=== PATIENT | female | born 1935 | race Caucasian/White ===

== ENCOUNTER 2018-05-03 15:59 | Outpatient (CLI) | payer OTHER, MEDICARE ==
[2018-05-03 16:44] LABS: BILIRUBIN,URINE 2+ (NEGATIVE); BLOOD, URINE 3+ (NEGATIVE); CLARITY/URINE CLOUDY (CLEAR); COLOR,URINE YELLOW (YELLOW); GLUCOSE,URINE NEGATIVE (NEGATIVE); KETONES,URINE TRACE (NEGATIVE); LEUKOCYTE ESTERASE ,URINE 1+ (NEGATIVE); NITRITE, URINE POSITIVE (NEGATIVE); PH,URINE 5.5 (5.0-8.0); PROTEIN URINE 2+ (NEGATIVE)
[2018-05-03 16:50] LABS: BACTERIA,URINE MODERATE /HPF (None Seen); WBC,URINE >100 /HPF (0-3)
[2018-05-03 16:52] LABS: BASOPHILS # (AUTO) 0.1 K/uL (0.0-0.2); BASOPHILS % (AUTO) 0.8 % (0.0-2.0); EOSINOPHILS # (AUTO) 0.1 K/uL (0.0-0.4); EOSINOPHILS % (AUTO) 1.3 % (0.0-4.0); HEMATOCRIT 40.6 % (36-48); HEMOGLOBIN 13.4 g/dL (12.0-16.0); LYMPHOCYTES # (AUTO) 1.2 K/uL (1.0-5.5); LYMPHOCYTES % (AUTO) 15.7 % (20.5-51.5); MEAN CORPUSCULAR HEMOGLOBIN 31 pg (27-31); MEAN CORPUSCULAR HGB CONC 33 % (32-36); MEAN CORPUSCULAR VOLUME 93 fL (79.0-98.0); MONOCYTES # (AUTO) 0.6 K/uL (0.0-1.0); MONOCYTES % (AUTO) 8.5 % (1.7-9.3); NEUTROPHILS # (AUTO) 5.4 K/uL (1.8-7.7); NEUTROPHILS % (AUTO) 73.7 % (40.0-70.0); PLATELET COUNT (AUTO) 199 K/uL (130-430); RED BLOOD CELL COUNT(AUTO) 4.36 MIL/uL (4.2-6.2); RED CELL DISTRIBUTION WIDTH 14.2 % (9.0-15.0); WHITE BLOOD COUNT (AUTO) 7.4 K/uL (4.8-10.8)
[2018-05-03 17:01] LABS: ANION GAP 10 (5-15); CALCIUM 9.4 mg/dL (8.4-11.0); CHLORIDE 104 mmol/L (98-107); CREATININE 1.05 mg/dL (0.55-1.30); GLUCOSE 118 mg/dL (70-99); POTASSIUM 4.2 mmol/L (3.5-5.1); SODIUM SERUM 141 mmol/L (136-145); UREA NITROGEN, BLOOD 17 mg/dL (8-21)
[2018-05-03 17:16] LABS: ALANINE AMINOTRANSFERASE 22 U/L (12-78); ASPARTATE AMINOTRANSFERASE 18 U/L (10-37); FREE T4 (FREE THYROXINE) 1.3 ng/dl (0.8-1.5); THYROID STIMULATING HORMONE 2.01 uIu/mL (0.36-3.74); TOTAL BILIRUBIN 0.7 mg/dL (0.0-1.0)
== END 2018-05-03 19:37 | disposition home or self-care (01) ==
LOC: SLB 15:59
PROVIDERS: ATTEND Internal Medicine
DX: E03.9 Hypothyroidism, unspecified (principal); E78.5 Hyperlipidemia, unspecified; I48.0 Paroxysmal atrial fibrillation; I42.8 Other cardiomyopathies; R30.0 Dysuria
CPT/HCPCS: 36415; 80053; 81000-TC; 83880; 84439; 84443-TC; 85025; 87086; 87186-TC

== ENCOUNTER 2022-11-27 11:28 | Inpatient (IN) | payer OTHER, MEDICARE ==
[~2022-11-27] VITALS: Ht 162.6 cm; Wt 117.1 kg
--- NOTE | 2022-11-27 11:29 | NUR ---
Patient triaged and placed in waiting room. VSS and patient appears in no acute distress at this time. Accompanied by self, awaiting available bed, and MD notified of need for MSE.
--- NOTE | 2022-11-27 11:30 | NUR ---
Placed in room 6. Placed on security installation technician, blood pressure machine and pulse oximeter. To gown for exam. Side rails up. Report given to Carmencita.
[2022-11-27 11:55] VITALS: BP_SYST 147
[2022-11-27 12:00] LABS: BASOPHILS # (AUTO) 0.1 K/uL (0.0-0.2); BASOPHILS % (AUTO) 0.6 % (0.0-2.0); EOSINOPHILS # (AUTO) 0.1 K/uL (0.0-0.4); EOSINOPHILS % (AUTO) 0.9 % (0.0-4.0); HEMATOCRIT 38.5 % (36-48); HEMOGLOBIN 12.6 g/dL (12.0-16.0); LYMPHOCYTES # (AUTO) 0.9 K/uL (1.0-5.5); LYMPHOCYTES % (AUTO) 10.5 % (20.5-51.5); MEAN CORPUSCULAR HEMOGLOBIN 31 pg (27-31); MEAN CORPUSCULAR HGB CONC 33 % (32-36); MEAN CORPUSCULAR VOLUME 94 fL (79.0-98.0); MONOCYTES # (AUTO) 0.8 K/uL (0.0-1.0); MONOCYTES % (AUTO) 9.5 % (1.7-9.3); NEUTROPHILS # (AUTO) 6.6 K/uL (1.8-7.7); NEUTROPHILS % (AUTO) 78.5 % (40.0-70.0); PLATELET COUNT (AUTO) 145 K/uL (130-430); RED BLOOD CELL COUNT(AUTO) 4.08 MIL/uL (4.2-6.2); RED CELL DISTRIBUTION WIDTH 14.8 % (9.0-15.0); WHITE BLOOD COUNT (AUTO) 8.5 K/uL (4.8-10.8)
--- NOTE | 2022-11-27 12:03 | NUR ---
PT BIBA FROM HOME WITH REPORT OF CHEST PAIN FROM COUGHING. PT IS AWAKE, A/O X4 AND VERBALLY RESPONSIVE. NO ACUTE DISTRESS NOTED. BREATHING EVEN AND UNLABORED. PT NOTED WITH PERSISTANT COUGH. PT TRANSFERRED FROM AMBULANCE [facility] TO ED ROOM 06 [facility] WITH NO DISTRESS. PT PLACED ON FOREMAN OR SUPERVISOR AND OPERATOR. 20G IV PLACED TO L AC, POSITIVE BLOOD RETURN. NO REDNESS OR SWELLING NOTED. PT TOLERATED IV PLACEMENT WELL. SAFETY MEASURES IN PLACE.
[2022-11-27] MEDS ORDERED: DAPA5TAB PO (12:16)
[2022-11-27] MEDS ORDERED: WARF4TAB72 PO (12:16)
[2022-11-27] MEDS ORDERED: LEVO75TA7 PO (12:16)
[2022-11-27] MEDS ORDERED: BUDE6HFA INH (12:16)
[2022-11-27] MEDS ORDERED: FURO-149 PO (12:16)
[2022-11-27] MEDS ORDERED: SACU1TAB PO (12:16)
[2022-11-27 12:23] LABS: ANION GAP 3 (5-15); CALCIUM 8.7 mg/dL (8.4-11.0); CHLORIDE 100 mmol/L (98-107); CREATININE 0.98 mg/dL (0.55-1.30); GLUCOSE 136 mg/dL (70-99); UREA NITROGEN, BLOOD 15 mg/dL (8-21)
[2022-11-27 12:30] LABS: ALANINE AMINOTRANSFERASE 23 U/L (12-78); ASPARTATE AMINOTRANSFERASE 22 U/L (10-37); TOTAL BILIRUBIN 1.5 mg/dL (0.0-1.0)
[2022-11-27] MEDS ORDERED: FUROSEMIDE 40 MG/4 ML VIAL IVP ONE (13:00)
[2022-11-27 13:05] LABS: INR 2.3 (0.8-1.2); PROTHROMBIN TIME 22.1 SECS (9.5-12.5)
--- NOTE | 2022-11-27 13:32 | NUR ---
Per Dr. Gil request, called Dr. Patrick for admission orders.
--- NOTE | 2022-11-27 13:35 | NUR ---
PT IN POSITION OF COFMORT. NO ACUTE DISTRESS NOTED, BREATHING EVEN AND UNLABORED. SAFETY MEASURES IN PLACE. NO CHANGES AT THIS TIME
[2022-11-27] MEDS ORDERED: dilTIAZem HCL IVP 5 MG/ML VIAL IVP ONE (14:00)
--- NOTE | 2022-11-27 16:13 | NUR ---
Admit bed requested Patient will be admitted to care of . Admitted to TELEMETRY unit. Diagnosis CHF EXACERBATION Inpatient (Yes or No) Observation (Yes or No) Orientation concerns or request close to nursing station (Yes or No) N Covid Status NEG On vent or bipap N Isolation requirements N Needs a sitter From Home (Yes or if No enter name of facility) Y Requires Dialysis (Yes or No) [N Med Rec Completed (Yes of No) Y
--- NOTE | 2022-11-27 16:42 | NUR ---
Pt resting in position of comfort, no acute distress noted. breathing even and unlabored. pt remains in position of comfort, safety measures in place. Pt remains on desk monitor. No changes at this time
--- NOTE | 2022-11-27 18:13 | NUR ---
BEDSIDE REPORT GIVEN TO ULISSES FERRARA. PT TRANSFERRED FROM ED [facility] TO TELE BED WITH NO DISTRESS. BREATHING EVEN AND UNLABORED.
[2022-11-27 18:45] VITALS: BP_SYST 139
--- NOTE | 2022-11-27 19:20 | NUR ---
RECEIVED REPORT ON PATIENT FROM JOSIAS GTZ, ASSUMED CARE AND STARTED ASSESSMENT. PATIENT IS PRESENTLY SOUND ASLEEP, AND DIFFICULT TO AROUSE. HER BREATHING IS EVEN AND UNLABORED AND HER CHEST EXPANSION IS EQUAL BILATERALLY. WILL CONTINUE TO MONITOR AND ASSESS FOR SAFETY AND COMFORT.
[2022-11-27 20:00] VITALS: BP_SYST 129
[2022-11-28] VITALS (7 sets, daily range): BP systolic 113–151
--- NOTE | 2022-11-28 04:01 | NUR ---
Consultation Paged Reason for Consultation: chf Was consult called: Y Person who was notified: Rosa Maria Consulting Physician: Dr. Campos Ordering Physician: Dr. Patrick
--- NOTE | 2022-11-28 05:42 | NUR ---
PATIENT WOULD AWAKEN MOMENTARILY DURING THE NIGHT WITH COUGHING AND ASKING FOR COUGH DROPS. SHE IS PRESENTLY SOUND ASLEEP, RESTING IN NO APPARENT DISTRESS. WILL CONTINUE TO MONITOR AND ASSESS FOR SAFETY AND COMFORT.
--- NOTE | 2022-11-28 07:28 | NUR ---
REPORT WAS GIVEN TO JOSIAS SÁNCHEZ, AND CARE WAS TURNED OVER TO HER.
[2022-11-28 07:46] LABS: BASOPHILS % (AUTO) 0.4 % (0.0-2.0); EOSINOPHILS # (AUTO) 0.1 K/uL (0.0-0.4); EOSINOPHILS % (AUTO) 1.7 % (0.0-4.0); LYMPHOCYTES % (AUTO) 13.9 % (20.5-51.5); MEAN CORPUSCULAR HEMOGLOBIN 32 pg (27-31); MEAN CORPUSCULAR HGB CONC 34 % (32-36); MEAN CORPUSCULAR VOLUME 94 fL (79.0-98.0); MONOCYTES # (AUTO) 0.9 K/uL (0.0-1.0); MONOCYTES % (AUTO) 12.1 % (1.7-9.3); NEUTROPHILS # (AUTO) 5.2 K/uL (1.8-7.7); NEUTROPHILS % (AUTO) 71.9 % (40.0-70.0); PLATELET COUNT (AUTO) 134 K/uL (130-430); RED BLOOD CELL COUNT(AUTO) 3.82 MIL/uL (4.2-6.2); RED CELL DISTRIBUTION WIDTH 15.1 % (9.0-15.0); WHITE BLOOD COUNT (AUTO) 7.3 K/uL (4.8-10.8)
--- NOTE | 2022-11-28 07:47 | NUR ---
OPENING NOTE received pt alert, oriented. states she wants a cough drop for sore, dry throat. ice chips and hot tea provided. cough drop to be requested from MD. skin warm and dry. no distress otherwise. iv appears intact left arm, SL. call light in reach. respirations even, unlabored, no SOB. reminded to replace nc in nares.
[2022-11-28 08:24] LABS: ALANINE AMINOTRANSFERASE 19 U/L (12-78); ALBUMIN 2.6 g/dL (3.4-4.8); ANION GAP 3 (5-15); ASPARTATE AMINOTRANSFERASE 10 U/L (10-37); CALCIUM 8.7 mg/dL (8.4-11.0); CHLORIDE 101 mmol/L (98-107); CREATININE 0.91 mg/dL (0.55-1.30); GLUCOSE 98 mg/dL (70-99); TOTAL BILIRUBIN 1.5 mg/dL (0.0-1.0); UREA NITROGEN, BLOOD 16 mg/dL (8-21)
[2022-11-28] MEDS ORDERED: SACUBITRIL/VALSARTAN 24 MG-26 MG 1 TABLET PO SCH (09:00)
[2022-11-28] MEDS ORDERED: BUDESONIDE/FORMOTEROL 160-4.5 mCg, 6 GM INHALER INH SCH (09:00)
[2022-11-28] MEDS: FUROSEMIDE 40 MG/4 ML VIAL IVP SCH (09:33)
[2022-11-28] MEDS ORDERED: LEVOTHYROXINE SODIUM 0.075 MG TABLET PO ONE (10:00)
--- NOTE | 2022-11-28 10:30 | NUR ---
MD DR MCGUIRE BEDSIDE EXAMINING PATIENT
--- NOTE | 2022-11-28 11:01 | NUR ---
TRANSFER OF MD CARE DR MCGUIRE SPOKE WITH DR KRUGER AND INFORMED HIM THAT THE PATIENTS PCP IS DR VALDES. OK TO TRANSFER CARE TO DR VALDES
--- NOTE | 2022-11-28 11:05 | NUR ---
MD DIMAS VALDES SPOKE WITH MELVINA AT THE EXCHANGE REGARDING TRANSFER OF CARE
--- NOTE | 2022-11-28 13:00 | NUR ---
MD DR VALDES BEDSIDE EXAMINING PATIENT
[2022-11-28] MEDS: ALBUTEROL SULFATE 0.083% 2.5 MG/3 ML VIAL.NEB INH SCH ×2 (13:07→20:43)
[2022-11-28] MEDS ORDERED: LACTOBACILLUS RHAMNOSUS GG 1 CAP CAPSULE PO ONE (13:45)
[2022-11-28] MEDS: cefTRIAXone 1 GM in D5W 50 ML IV SCH (15:12)
[2022-11-28] MEDS: AZITHROMYCIN 500 MG in NS 250 ML IV SCH (16:16)
[2022-11-28] MEDS: BENZOCAINE/MENTHOL 1 EACH LOZENGE MM PRN ×2 (16:31→21:59)
[2022-11-28] MEDS ORDERED: WARFARIN SODIUM 4 MG TABLET PO SCH (18:00)
--- NOTE | 2022-11-28 18:09 | NUR ---
STATUS SITTING UP IN BED EATING DINNER. NO DISTRESS. SKIN WARM AND DRY. RESPIRATIONS EVEN, UNLABORED. PT REMOVES AND REPLACES HER NC. REMINDED TO LEAVE ON TO MAINTAIN SATURATIONS WNL. CURRENTLY ON 2L WITH SATURATION 94% CALL LIGHT IN REACH.
--- NOTE | 2022-11-28 19:25 | NUR ---
CLEANED AND CHANGED BED LINEN. REPORT GIVEN TO FIELD WORKER RN. PT STABLE. NO DISTRESS.CALL LIGHT IN REACH
[2022-11-28] MEDS: BUDESONIDE 0.5 MG/2 ML AMPUL.NEB INH SCH (20:44)
[2022-11-28] MEDS: LACTOBACILLUS RHAMNOSUS GG 1 CAP CAPSULE PO SCH (21:58)
--- NOTE | 2022-11-28 21:59 | NUR ---
Meds late entry Scheduled med, Culturelle and requested med, Cepacol administered. Patient resting in bed , no distress on 2L NC. Safety precautions in place
[2022-11-29] VITALS (7 sets, daily range): BP systolic 107–124
--- NOTE | 2022-11-29 00:30 | NUR ---
V/S, patient care Patient is awake for V/S which are stable. She is incontinent and provided with partial bed bath, pericare and linen change.
[2022-11-29] MEDS: ALBUTEROL SULFATE 0.083% 2.5 MG/3 ML VIAL.NEB INH SCH ×3 (01:16→13:50)
[2022-11-29] MEDS: BENZOCAINE/MENTHOL 1 EACH LOZENGE MM PRN ×5 (05:51→21:31)
--- NOTE | 2022-11-29 05:55 | NUR ---
Cepacol Patient accidently removed oxygen and desaturated to 83%. Connected her to OR and oxygen increased to 93%. Rt called gave message to U.S to call RT for breathing tx, has not arrived. She feels better and requested a Cepacol lozenges for cough and throat and it was given.
[2022-11-29] MEDS: LEVOTHYROXINE SODIUM 0.075 MG TABLET PO SCH ×2 (06:23→21:31)
--- NOTE | 2022-11-29 07:40 | NUR ---
closing note, late entry Patient stable, awake and talking on cell phone. endorsed care.
[2022-11-29] MEDS: BUDESONIDE 0.5 MG/2 ML AMPUL.NEB INH SCH (07:54)
[2022-11-29 07:57] LABS: BASOPHILS % (AUTO) 0.3 % (0.0-2.0); EOSINOPHILS # (AUTO) 0.1 K/uL (0.0-0.4); EOSINOPHILS % (AUTO) 1.8 % (0.0-4.0); HEMATOCRIT 37.2 % (36-48); HEMOGLOBIN 12.1 g/dL (12.0-16.0); LYMPHOCYTES % (AUTO) 15.8 % (20.5-51.5); MEAN CORPUSCULAR HEMOGLOBIN 31 pg (27-31); MEAN CORPUSCULAR HGB CONC 32 % (32-36); MEAN CORPUSCULAR VOLUME 95 fL (79.0-98.0); MONOCYTES # (AUTO) 0.7 K/uL (0.0-1.0); MONOCYTES % (AUTO) 12.1 % (1.7-9.3); NEUTROPHILS # (AUTO) 4.3 K/uL (1.8-7.7); PLATELET COUNT (AUTO) 148 K/uL (130-430); RED BLOOD CELL COUNT(AUTO) 3.92 MIL/uL (4.2-6.2); RED CELL DISTRIBUTION WIDTH 15.1 % (9.0-15.0); WHITE BLOOD COUNT (AUTO) 6.1 K/uL (4.8-10.8)
[2022-11-29 08:58] LABS: ANION GAP 2 (5-15); CALCIUM 8.8 mg/dL (8.4-11.0); CHLORIDE 98 mmol/L (98-107); CREATININE 0.83 mg/dL (0.55-1.30); GLUCOSE 122 mg/dL (70-99); UREA NITROGEN, BLOOD 16 mg/dL (8-21)
[2022-11-29 09:02] LABS: ALANINE AMINOTRANSFERASE 21 U/L (12-78); ALBUMIN 2.4 g/dL (3.4-4.8); ASPARTATE AMINOTRANSFERASE 13 U/L (10-37); CHOLESTEROL 156 mg/dL (<200); HDL CHOLESTEROL 55 mg/dL (>55); THYROID STIMULATING HORMONE 0.56 uIu/mL (0.34-4.82); TOTAL BILIRUBIN 0.8 mg/dL (0.0-1.0); TRIGLYCERIDES 80 mg/dL (30-150)
[2022-11-29] MEDS: LACTOBACILLUS RHAMNOSUS GG 1 CAP CAPSULE PO SCH ×2 (10:04→21:30)
[2022-11-29] MEDS: FUROSEMIDE 40 MG/4 ML VIAL IVP SCH (10:04)
[2022-11-29 10:20] LABS: INR 2.1 (0.8-1.2); PROTHROMBIN TIME 20.9 SECS (9.5-12.5)
[2022-11-29] MEDS ORDERED: POTASSIUM CHLORIDE 20 MEQ/PKT PACKET PO ONE (15:15)
[2022-11-29] MEDS: cefTRIAXone 1 GM in D5W 50 ML IV SCH (15:20)
[2022-11-29] MEDS: AZITHROMYCIN 500 MG in NS 250 ML IV SCH (15:20)
[2022-11-29] MEDS: WARFARIN SODIUM 5 MG TABLET PO SCH (17:12)
[2022-11-29] MEDS: POTASSIUM CHLORIDE 20 MEQ/PKT PACKET PO SCH (21:30)
[2022-11-30] VITALS: BP_SYST 151
[2022-11-30] MEDS: BUDESONIDE 0.5 MG/2 ML AMPUL.NEB INH SCH ×3 (00:28→19:57)
[2022-11-30] MEDS: ALBUTEROL SULFATE 0.083% 2.5 MG/3 ML VIAL.NEB INH SCH ×4 (00:28→19:56)
[2022-11-30] MEDS: BENZOCAINE/MENTHOL 1 EACH LOZENGE MM PRN ×3 (03:30→09:30)
--- NOTE | 2022-11-30 06:00 | NUR ---
MIss Feliciano has been assessed as indicated. She continues to deny pain/ She does have a frequent dry cough. She requested and been provided with throat lozenges. she has had moderate success with the paretics device. She likes to turn on her side and this dislodges the device. She has some urine in canister and the linens have been changed.
--- NOTE | 2022-11-30 07:22 | NUR ---
Handoff has been given to Mirta
[2022-11-30 08:00] VITALS: BP_SYST 162
[2022-11-30] MEDS ORDERED: POTASSIUM CHLORIDE 20 MEQ/PKT PACKET PO SCH (09:00)
[2022-11-30 09:21] LABS: INR 1.9 (0.8-1.2); PROTHROMBIN TIME 18.8 SECS (9.5-12.5)
[2022-11-30] MEDS: LACTOBACILLUS RHAMNOSUS GG 1 CAP CAPSULE PO SCH ×2 (09:29→22:49)
[2022-11-30] MEDS: POTASSIUM CHLORIDE 20 MEQ/PKT PACKET PO SCH ×2 (09:29→22:49)
[2022-11-30] MEDS: FUROSEMIDE 20 MG TABLET PO SCH ×2 (09:32→12:00)
[2022-11-30 11:38] VITALS: BP_SYST 136
[2022-11-30] MEDS: cefTRIAXone 1 GM in D5W 50 ML IV SCH (15:00)
[2022-11-30 15:29] VITALS: BP_SYST 132
[2022-11-30] MEDS: AZITHROMYCIN 500 MG in NS 250 ML IV SCH (16:38)
[2022-11-30] MEDS: WARFARIN SODIUM 5 MG TABLET PO SCH (17:16)
[2022-11-30 20:00] VITALS: BP_SYST 126
[2022-11-30] MEDS: DOXYCYCLINE HYCLATE 100 MG CAPSULE PO SCH (22:49)
[2022-12-01] MEDS: ALBUTEROL SULFATE 0.083% 2.5 MG/3 ML VIAL.NEB INH SCH ×4 (00:35→19:43)
[2022-12-01 04:19] VITALS: BP_SYST 115
[2022-12-01] MEDS: LEVOTHYROXINE SODIUM 0.075 MG TABLET PO SCH (06:26)
--- NOTE | 2022-12-01 07:05 | NUR ---
Miss Lopez has been assessed as indicated. She has been very flat of affect this shift. She has confusion that is worse at night and clears somewhat as the sun rises. She yells/talks and moans in her sleep she is incontinent of bladder with no BM this shift. She denies pain. She does have a dry cough that is frequent at night. She hopes to DC home today. She has no IV access MD is aware. PO antibiotics have been well tolerated. She is resting quietly at this time
--- NOTE | 2022-12-01 07:30 | NUR ---
OPENING NOTE; PT RESTING IN BED. PT WAS UPSET BECAUSE SHE REQUESTED FOR COUGH DROPS MULTIPLE TIMES. PT HAS DRY COUGHS. BREATHING ON 2L O2 VIA NC. STEPHANIE ANY SOB OR PAIN. NO IV SITE. ENCOURAGED PT TO USE CALL LIGHT FOR ASSISTANCE. WILL CONT TO MONITOR
--- NOTE | 2022-12-01 07:30 | NUR ---
Handoff has been given to Shikha
[2022-12-01] MEDS: BUDESONIDE 0.5 MG/2 ML AMPUL.NEB INH SCH ×2 (07:43→19:43)
[2022-12-01 08:00] VITALS: BP_SYST 118
[2022-12-01] MEDS: DOXYCYCLINE HYCLATE 100 MG CAPSULE PO SCH ×2 (08:22→22:49)
[2022-12-01] MEDS: POTASSIUM CHLORIDE 20 MEQ/PKT PACKET PO SCH ×2 (08:22→22:48)
[2022-12-01] MEDS: LACTOBACILLUS RHAMNOSUS GG 1 CAP CAPSULE PO SCH ×2 (08:22→22:48)
[2022-12-01] MEDS: BENZOCAINE/MENTHOL 1 EACH LOZENGE MM PRN ×4 (08:22→22:49)
[2022-12-01] MEDS: FUROSEMIDE 20 MG TABLET PO SCH ×3 (08:28→17:15)
[2022-12-01 09:25] LABS: PROTHROMBIN TIME 19.7 SECS (9.5-12.5)
[2022-12-01 09:34] VITALS: BP_SYST 115
--- NOTE | 2022-12-01 10:45 | NUR ---
NOTES; PT RESTING IN BED, NO S/S SOB/PAIN/DISCOMFORT. WILL CONT TO MONITOR
[2022-12-01 11:28] VITALS: BP_SYST 100
--- NOTE | 2022-12-01 13:44 | NUR ---
Followed up with Marce at [facility] [phone]. patient was on service with [facility] and Marce agrees to resume care for patient.
--- NOTE | 2022-12-01 14:00 | NUR ---
NOTES; CHANGED LINEN AND BEDSHEETS. PROVIDED GOOD CAYDEN CARE. PT TOLERATED WELL.
--- NOTE | 2022-12-01 14:30 | NUR ---
ROUND; AT BEDSIDE, ASSESSING PT. PT INSISTS TO USE PUREWICK. DR.SAID MONKAY.
--- NOTE | 2022-12-01 14:59 | NUR ---
NOTES; PLACED NEW PUREWICK PER PT'S REQUEST. PT TOLERATED WELL. PROVIDED GOOD CAYDEN CARE.
[2022-12-01 16:01] VITALS: BP_SYST 144
[2022-12-01] MEDS: WARFARIN SODIUM 5 MG TABLET PO SCH (17:14)
--- NOTE | 2022-12-01 17:33 | NUR ---
NOTES; CALLED LABS TO F/U WITH BLOOD LAB WORKS.
--- NOTE | 2022-12-01 17:34 | NUR ---
NOTES; WAS TOLD THAT PT'S BLOOD IS ABOUT TO BE DRAWN.
--- NOTE | 2022-12-01 17:50 | NUR ---
NOTES; BLOOD LAB WAS DRAWN.
[2022-12-01 18:24] LABS: BASOPHILS % (AUTO) 0.9 % (0.0-2.0); EOSINOPHILS # (AUTO) 0.2 K/uL (0.0-0.4); EOSINOPHILS % (AUTO) 5.2 % (0.0-4.0); HEMATOCRIT 39.2 % (36-48); LYMPHOCYTES % (AUTO) 21.1 % (20.5-51.5); MEAN CORPUSCULAR HEMOGLOBIN 31 pg (27-31); MEAN CORPUSCULAR HGB CONC 33 % (32-36); MEAN CORPUSCULAR VOLUME 95 fL (79.0-98.0); MONOCYTES # (AUTO) 0.5 K/uL (0.0-1.0); MONOCYTES % (AUTO) 9.9 % (1.7-9.3); NEUTROPHILS % (AUTO) 62.9 % (40.0-70.0); PLATELET COUNT (AUTO) 190 K/uL (130-430); RED BLOOD CELL COUNT(AUTO) 4.14 MIL/uL (4.2-6.2); RED CELL DISTRIBUTION WIDTH 14.9 % (9.0-15.0); WHITE BLOOD COUNT (AUTO) 4.7 K/uL (4.8-10.8)
[2022-12-01 18:36] LABS: CALCIUM 9.4 mg/dL (8.4-11.0); CREATININE 0.82 mg/dL (0.55-1.30); GLUCOSE 120 mg/dL (70-99); UREA NITROGEN, BLOOD 18 mg/dL (8-21)
[2022-12-01 18:42] LABS: ANION GAP 5 (5-15); CHLORIDE 98 mmol/L (98-107)
--- NOTE | 2022-12-01 19:03 | NUR ---
CLOSING NOTE; PT RESTING IN BED, BREATHING REGULAR NON-LABORED ON 2L NC. DENIES ANY PAIN OR DISCOMFORT. SAFETY PRECAUTION IN PLACE. BED IS LOCKED AND AT LOW POSITION. ENCOURAGED PT TO USE CALL LIGHT FOR ASSISTANCE. WILL ENDORSE CARE TO FURNITURE SERVICER NURSE.
[2022-12-01 20:00] VITALS: BP_SYST 135
--- NOTE | 2022-12-01 20:29 | NUR ---
Dr Campo contacted related persistent dry cough at [facility] new order for cough medication has been obtained.
[2022-12-01] MEDS ORDERED: guaiFENesin 200 MG/CODEINE 20 MG/ 10 ML UDC PO PRN (20:30)
[2022-12-02] VITALS: BP_SYST 159
[2022-12-02] MEDS: ALBUTEROL SULFATE 0.083% 2.5 MG/3 ML VIAL.NEB INH SCH ×3 (01:00→13:40)
--- NOTE | 2022-12-02 06:00 | NUR ---
Miss Feliciano has been assessed as indicated. She continues to deny pain. She did take newly ordered cough medication and was able to sleep well. She anticipates being DC to home today. She has been encouraged to limit PO fluid intake. It has been a challenge to encourage her to see the value in this practice. She has successfully used a PUREwick this shift. She is presently resting quietly with no s/s of distress or discomfort.
[2022-12-02 06:15] LABS: BASOPHILS % (AUTO) 0.6 % (0.0-2.0); EOSINOPHILS # (AUTO) 0.3 K/uL (0.0-0.4); EOSINOPHILS % (AUTO) 6.3 % (0.0-4.0); HEMATOCRIT 38.7 % (36-48); HEMOGLOBIN 12.7 g/dL (12.0-16.0); LYMPHOCYTES # (AUTO) 1.3 K/uL (1.0-5.5); LYMPHOCYTES % (AUTO) 25.1 % (20.5-51.5); MEAN CORPUSCULAR HEMOGLOBIN 31 pg (27-31); MEAN CORPUSCULAR HGB CONC 33 % (32-36); MEAN CORPUSCULAR VOLUME 95 fL (79.0-98.0); MONOCYTES # (AUTO) 0.5 K/uL (0.0-1.0); MONOCYTES % (AUTO) 9.6 % (1.7-9.3); NEUTROPHILS % (AUTO) 58.4 % (40.0-70.0); PLATELET COUNT (AUTO) 198 K/uL (130-430); RED BLOOD CELL COUNT(AUTO) 4.09 MIL/uL (4.2-6.2); RED CELL DISTRIBUTION WIDTH 14.7 % (9.0-15.0); WHITE BLOOD COUNT (AUTO) 5.1 K/uL (4.8-10.8)
--- NOTE | 2022-12-02 07:00 | NUR ---
Handoff has been given to Shikha
[2022-12-02 07:11] LABS: INR 3.1 (0.8-1.2); PROTHROMBIN TIME 29.8 SECS (9.5-12.5)
[2022-12-02] MEDS: BUDESONIDE 0.5 MG/2 ML AMPUL.NEB INH SCH (07:20)
[2022-12-02 07:25] LABS: ALBUMIN 2.5 g/dL (3.4-4.8); ANION GAP 4 (5-15); ASPARTATE AMINOTRANSFERASE 19 U/L (10-37); CALCIUM 9.2 mg/dL (8.4-11.0); CHLORIDE 94 mmol/L (98-107); CREATININE 0.95 mg/dL (0.55-1.30); GLUCOSE 113 mg/dL (70-99); TOTAL BILIRUBIN 0.6 mg/dL (0.0-1.0); UREA NITROGEN, BLOOD 19 mg/dL (8-21)
--- NOTE | 2022-12-02 07:30 | NUR ---
OPENING NOTE; PT RESTING IN BED. BREATHING ON 2L O2 VIA NC. STEPHANIE ANY SOB OR PAIN. NO IV SITE. ENCOURAGED PT TO USE CALL LIGHT FOR ASSISTANCE. WILL CONT TO MONITOR
[2022-12-02] MEDS: LEVOTHYROXINE SODIUM 0.075 MG TABLET PO SCH (07:39)
[2022-12-02 08:00] VITALS: BP_SYST 112
[2022-12-02] MEDS: LACTOBACILLUS RHAMNOSUS GG 1 CAP CAPSULE PO SCH (09:00)
[2022-12-02] MEDS: FUROSEMIDE 20 MG TABLET PO SCH (09:00)
[2022-12-02] MEDS: POTASSIUM CHLORIDE 20 MEQ/PKT PACKET PO SCH (09:01)
[2022-12-02] MEDS: DOXYCYCLINE HYCLATE 100 MG CAPSULE PO SCH (09:01)
--- NOTE | 2022-12-02 09:50 | NUR ---
NOTES; UNABLE TO GET HOLD OF 'S OFFICE NUMBER. NOTIFIED CHARGE NURSE REGARDING PT'S DC ORDER
--- NOTE | 2022-12-02 10:12 | NUR ---
NOTES; O2 SAT LOW 80s% on RA, PUT PT ON 2L O2 VIA NC @94%.
[2022-12-02 10:52] VITALS: BP_SYST 132
[2022-12-02 12:00] VITALS: BP_SYST 132
[2022-12-02] MEDS ORDERED: ALBU2.5V7 INH (13:24)
[2022-12-02] MEDS ORDERED: FURO-150 PO (13:24)
[2022-12-02] MEDS ORDERED: DOXY100C5 PO (13:24)
[2022-12-02] MEDS ORDERED: POTASSIUM CHLOR 20 mEq/Packet PO (13:24)
[2022-12-02] MEDS ORDERED: POTA-197 PO (13:25)
[2022-12-02] MEDS ORDERED: GUAI5SYR PO (13:33)
--- NOTE | 2022-12-02 15:16 | NUR ---
faxed discharge order to [facility]. Home health is set up with this agency
--- NOTE | 2022-12-02 16:30 | NUR ---
D/C Patient Patient given medication reconciliation form and D/C instructions. Exit Care provided. Patient verbalized understanding. MD discussed with patient the results and treatment provided. Ambulatory with steady gait for discharge to home. Patient in stable condition, ID band removed. IV catheter removed, intact and dressing applied, no active bleeding. Encouraged patient to see director of digital platforms within a week. Evans brought o2 tank from [facility]'s home. Patient educated on pain management. All belongings sent with patient.
[2022-12-02] MEDS ORDERED: WARFARIN SODIUM 2.5 MG TABLET PO SCH (18:00)
[2022-12-03 08:31] LABS: ALANINE AMINOTRANSFERASE 20 U/L (12-78)
== END 2022-12-02 16:30 | disposition home health service (06) | DRG 291 ==
LOC: SED 11:28 → STU 16:10
PROVIDERS: ADMIT Internal Medicine; ATTEND Internal Medicine
DX: I50.43 Acute on chronic combined systolic (congestive) and diastolic (congestive) heart failure (principal); R65.11 Systemic inflammatory response syndrome (SIRS) of non-infectious origin with acute organ dysfunction; D68.59 Other primary thrombophilia; I48.20 Chronic atrial fibrillation, unspecified; J44.0 Chronic obstructive pulmonary disease with (acute) lower respiratory infection; J44.1 Chronic obstructive pulmonary disease with (acute) exacerbation; Z68.41 Body mass index [BMI] 40.0-44.9, adult; E44.0 Moderate protein-calorie malnutrition; J20.9 Acute bronchitis, unspecified; I87.8 Other specified disorders of veins; E03.9 Hypothyroidism, unspecified; E66.01 Morbid (severe) obesity due to excess calories; Z60.2 Problems related to living alone; J84.10 Pulmonary fibrosis, unspecified; E87.6 Hypokalemia; I89.0 Lymphedema, not elsewhere classified; J81.0 Acute pulmonary edema; Z96.652 Presence of left artificial knee joint; Z20.822 Contact with and (suspected) exposure to COVID-19; M19.90 Unspecified osteoarthritis, unspecified site; Z79.01 Long term (current) use of anticoagulants; Z88.8 Allergy status to other drugs, medicaments and biological substances; Z79.899 Other long term (current) drug therapy
CPT/HCPCS: 36415; 71045; 80048; 80053; 80061; 83735; 83880; 84443; 84484; 85025; 85610-TC; 87081; 93005; 93306; 94640; 94760; 96374; 97116-GP; 97163-GP; 99285; G0378; J0456; J0696; J1940; J3490; J7050; J7060; J7613; J7626